=== PATIENT | female | born 1985 | race Caucasian/White ===

== ENCOUNTER 2018-08-09 00:43 | Outpatient (CLI) | payer BC, SELFPAY ==
--- NOTE | 2018-08-09 09:26 | DI.US_ITS ---
SYMPTOM/DIAGNOSIS: BILAT KIDNEY STONES, N20.0, MONITOR SIZE AND LOCATION RENAL ULTRASOUND: Comparison is made with 12/27/17. The right kidney measures 11.7 cm. in length and shows normal parenchymal thickness and echogenicity. A 5 mm. stone is again noted at the lower pole of the right kidney. There is no hydronephrosis. The left kidney measures 10.5 cm. in length and shows normal parenchymal thickness and echogenicity. There is a 6 mm. stone at the lower pole of the left kidney, unchanged from the previous exam. No new stones or hydronephrosis is seen. The prevoid bladder volume measured 652 cc's. Both ureteral jets were seen. The postvoid residual is 41 cc's. No bladder masses or bladder stones are identified. IMPRESSION: Stable small non obstructing stones at the lower poles of both kidneys.
== END 2018-08-09 01:03 ==
PROVIDERS: PCP Nurse Practitioner Family; Visit Provider Urology
DX: N20.0 Calculus of kidney (principal)
CPT/HCPCS: 76770

== ENCOUNTER 2019-04-11 01:30 | Outpatient (CLI) | payer BC, SELFPAY ==
--- NOTE | 2019-04-11 11:00 | DI.US_ITS ---
EXAM: US OB<14 WEEK ADD GESTATIONS CLINICAL HISTORY: SUPERVISION OF NORMAL 1ST TRIMESTER 1ST , Z34.01 TECHNIQUE: Ultrasound performed using standard protocol. Transabdominal and transvaginal exams wer e performed. COMPARISON: No exams were available for comparison FINDINGS: There is a gestational sac seen appropriately positioned within the uterus. A yolk sac is seen. Devola -rump length measurements correspond to 8 weeks 6 days and an EDC of 15 November 2019. cardiac activ ity was demonstrated at 175 beats per minute. A corpus luteum is seen on the right ovary. The cervix appears intact. No free fluid is seen. IMPRESSION: Viable intrauterine gestation measuring 8 weeks 6 days.
== END 2019-04-11 01:50 ==
PROVIDERS: PCP Family Medicine; Visit Provider Nurse Practitioner Women's Health
DX: Z34.91 Encounter for supervision of normal pregnancy, unspecified, first trimester (principal); N83.11 Corpus luteum cyst of right ovary
CPT/HCPCS: 76802

== ENCOUNTER 2022-02-03 15:40 | Outpatient (REF) | payer BC, SELFPAY ==
[2022-02-03 19:57] LABS: HGB 13.2 g/dL (11.2-15.7); MCH 31.1 pg (27.0-33.0); MCHC 33.8 % (32.0-36.0); MCV 92 fL (80-95); MPV 11.6 fL (8.0-11.0); Platelet Count 272 10^3/uL (130-400); RBC 4.24 10^6/uL (3.93-5.22); RDW 13.3 % (11.7-14.6); RDW-SD 45.1 fL; WBC 7.16 10^3/uL (4.4-10.8)
[2022-02-03 20:13] LABS: ALT 20 U/L (14-59); AST 11 U/L (15-37); Albumin 3.7 g/dL (3.4-5.0); Alkaline Phosphatase 52 U/L (46-116); Anion Gap 3.8 mmol/L (3-11); BUN 12 mg/dL (7-18); Bilirubin, Total 0.2 mg/dL (0.2-1.0); CO2 30.2 mmol/L (21.0-32.0); CREATININE 0.6 mg/dL (0.55-1.02); Calcium 8.7 mg/dL (8.5-10.1); Chloride 104 mmol/L (98-107); Glucose 96 mg/dL (74-106); Potassium 4.5 mmol/L (3.5-5.1); Sodium 138 mmol/L (136-145); TSH (W/Ref FT4) 1.11 uIU/mL (0.36-3.74); Total Protein 7.4 g/dL (6.4-8.2)
== END 2022-02-03 15:41 | disposition home or self-care (01) ==
LOC: NCHCN 15:40
PROVIDERS: PCP Family Medicine; Visit Provider Nurse Practitioner Family
DX: E04.1 Nontoxic single thyroid nodule (principal)
CPT/HCPCS: 80053; 85027; 84443